=== PATIENT | female | born 1960 | race Hispanic/Latino ===

== ENCOUNTER → 2025-03-28 | Outpatient (CLI) | payer MEDICARE ==
--- NOTE | 2025-03-28 15:46 | HMCSR ---
APPROVED REPORT EXAM: Two-dimensional and M-mode echocardiogram with Doppler and color Doppler. INDICATION ICD: C50.112 Breast CA 2D Dimensions RVDd3.4 cmLVEF(%)66.6 (>50%)LVED Vol(simp.)85.0 mL IVSd0.9 (0.7-1.1cm)FS(%)36 %LVES Vol(simp.)32.0 mL LVDd3.6 (3.8-5.6cm)LA (2D)3.7 (1.6-4.0cm)LVEF(%, simp.)63 % PWd1.0 (0.7-1.1cm)Ao Root(2D)2.1 (2.0-3.7cm)LA ESV INDEX (BP)25.48 mL/m2 LVDs2.3 (2.5-4.0cm)LVOT diam1.7 (1.8-2.4cm) IVC diam2.0 cm Deformation Strain Apical 4-14.3 % Apical 2-17.7 % Apical 3-21.9 % Global Strain-18.0 % M-Mode Dimensions EPSS0.6 cm LA (MM)2.9 (1.6-4.0cm) Ao Root(MM)2.5 (2.0-3.7cm) Aortic Valve AoV Vmax1.8 m/Skip Peak GR13.3 mmHgLVOT Vmax1.5 m/s AoV VTI0.4 mAo Mean GR7.2 mmHgLVOT VTI0.33 m ARIS (VMAX)1.86 cm2Al P1/2T319 msAVA (VTI) 1.7 cm2 Mitral Valve MV E Vmax73.2 cm/sDECEL Moul389 ms MV A Vmax97.9 cm/sP 1/2 T48 ms E/A ratio0.7MVA (PHT)4.6 cm2 TDI E/E' Medial8.5E/E' Lateral5.1 Medial E' Peak V8.63 cm/sLateral E' Peak V14.22 cm/s Pulmonary Valve PV Vmax1.4 m/sPV VTI0.32 mPV Mean GR4.3 mmHg PV Peak GR7.3 mmHg Left Ventricle The left ventricle is normal size. There is normal left ventricular wall thickness. LVEF is 60-65%. T he left ventricular diastolic function is normal. Right Ventricle The right ventricle is normal size. The right ventricular systolic function is normal. Atria The left atrium size is normal. The right atrium size is normal. Aortic Valve The aortic valve is normal in structure. Moderate aortic regurgitation. There is no aortic valvular s tenosis. Mitral Valve The mitral valve is normal in structure. Mitral regurgitation is trace. There is no mitral valve sten osis. Tricuspid Valve The tricuspid valve is normal in structure. There is no tricuspid valve regurgitation noted. Pulmonic Valve The pulmonary valve is normal in structure. There is no pulmonic valvular regurgitation. Great Vessels The aortic root is normal in size. The IVC is normal in size and collapses >50% with inspiration. Pericardium There is no pericardial effusion. Conclusion The left ventricle is normal size. LVEF is 60-65%. The left ventricular diastolic function is normal. The right ventricle is normal size. The right ventricular systolic function is normal. The left atrium size is normal. The right atrium size is normal. Moderate aortic regurgitation. There is no pericardial effusion.
== END | disposition home or self-care (01) ==
LOC: RAH 14:28
PROVIDERS: ATTEND Internal Medicine
DX: C50.112 Malignant neoplasm of central portion of left female breast (principal); I35.1 Nonrheumatic aortic (valve) insufficiency; Z79.811 Long term (current) use of aromatase inhibitors; Z51.11 Encounter for antineoplastic chemotherapy
CPT/HCPCS: 93306; 93356

== ENCOUNTER → 2025-03-30 | Outpatient (CLI) | payer MEDICARE ==
--- NOTE | 2025-03-30 15:47 | HMCIMG ---
CLINICAL INDICATION: Long-term use of aromatase inhibitors COMPARISON: None available TECHNIQUE: Bone densitometry is performed of the lumbar spine and left hip. FINDINGS: Total BMD of lumbar spine is 0.713 g/cm2 with a T-score of -3.0 and Z-score is -1.1. Total BMD of left hip is 0.611 g/cm2 with a T-score of -2.6 and Z-score is -1.4. FRAX SCORE: The 10 year fracture risk for a major osteoporotic fracture and hip fracture not reported because T score at or below -2.5 IMPRESSION: 1. 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 I would recommend follow-up in 13 months World Health Organization criteria for BMD interpretation classify patients as Normal (T-score at or above -1.0), Osteopenic (T-score between -1.0 and -2.5), or Osteoporotic (T-score at or below -2.5). FRAX SCORE: A. All treatment decisions require clinical judgment and consideration of individual patient factors, including patient preferences, comorbidities, previous drug use, risk factors not captured in the FRAX model (e.g., frailty, falls, vitamin D deficiency, increased bone turnover, interval significant decline in bone density) and possible [id number]-estimation of fracture risk by FRAX. B. In addition, the NOF Guide recommends that FDA-approved medical therapies be considered in postmenopausal women and men age greater than or equal to 50 years with a: i. Hip or vertebral (clinical or morphometric) fracture. ii. T-score of less than or equal to -2.5 at the spine or hip. iii. Ten-year fracture probability by FRAX of greater than or equal to 3% for hip fracture of greater than or equal to 20% for major osteoporotic fracture.
== END | disposition home or self-care (01) ==
LOC: RAH 08:20
PROVIDERS: ATTEND Internal Medicine
DX: C50.112 Malignant neoplasm of central portion of left female breast (principal); M85.89 Other specified disorders of bone density and structure, multiple sites; Z79.811 Long term (current) use of aromatase inhibitors
CPT/HCPCS: 77080